=== PATIENT | male | born 1990 | race Caucasian/White ===

== ENCOUNTER 2016-06-17 20:24 | Emergency (ER) | payer MEDICAID | END 2016-06-18 00:44 | disposition home or self-care (01) | LOC: ER 20:24 | DX: R55 Syncope and collapse (principal); F41.1 Generalized anxiety disorder; F32.9 Major depressive disorder, single episode, unspecified | CPT/HCPCS: 36415; 80053; 81001; 82553; 82947; 84484; 85025; 93005 ==